=== PATIENT | male | born 1990 | race Caucasian/White ===

== ENCOUNTER 2017-02-04 20:34 | Emergency (ER) | payer SELFPAY ==
[~2017-02-04] VITALS: Ht 188 cm; Wt 80.0 kg
[2017-02-04 20:35] VITALS: BP 115/74; PULSE 111; RESP 16; TEMP 98.9; O2SAT 98
--- NOTE | 2017-02-04 21:02 | PD ---
Physical Exam Date Seen by Provider: Feb 04, 2017 Time Seen by Provider: 20:59 Narrative 26 YOWM 3 DAYS OF SORE THROAT, F/C, COUGH, CONGESTION, CP WITH DEEP BREATH AND COUGH. NO N/V VS NOTED. PT AWAITING BED PLACEMENT. Data Data Last Documented VS Vital Signs Date Time Temp Pulse Resp B/P Pulse Ox O2 Delivery O2 Flow Rate FiO2 02/04/17 20:35 98.9 111 16 115/74 98 Room Air [facility] Medical Record Reviewed: Yes Supervised Visit with SHANTELL: Yes Nick Robbins Feb 04, 2017 21:02
--- NOTE | 2017-02-04 21:36 | PD ---
HPI Chief Complaint: Cold / Flu Symptoms Time Seen by Provider: 21:20 Travel History International Travel<30 days: No Contact w/Intl Traveler<30days: No Traveled to known affect area: No History of Present Illness HPI 26-year-old male presents for evaluation of cough, congestion and sore throat. Symptoms started 3 days ago. Hurts to swallow. He reports that he has been coughing up brown sputum. He reports that his has similar but less severe symptoms. He has had no objective fevers at home. He denies any abdominal pain , nausea or vomiting, rash or recent travel. He hasn't tried using any over-the -counter medication for symptom relief. No other complaints. PFSH Past Medical History Immunizations Current: Yes Tetanus Vaccination: Unknown Influenza Vaccination: No Social History Alcohol Use: No Tobacco Use: Yes Substance Use: No Allergies-Medications (Allergen,Severity, Reaction): Coded Allergies: No Known Allergies (Unverified , 02/04/17) Reported Meds & Prescriptions Reported Meds & Active Scripts Active Amoxicillin 875 Mg Tab 875 Mg PO BID 10 Days Review of Systems Except as stated in HPI: all other systems reviewed are Neg Physical Exam Narrative GENERAL: Well-nourished male in no acute distress SKIN: Warm and dry. HEAD: Atraumatic. Normocephalic. EYES: Pupils equal and round. No scleral icterus. No injection or drainage. ENT: No nasal bleeding or discharge. Mucous membranes pink and moist. Mild oropharyngeal erythema without exudate. Uvula midline with no mass effect. NECK: Trachea midline. No JVD. No lymphadenopathy CARDIOVASCULAR: Regular rate and rhythm. No murmur appreciated. RESPIRATORY: No accessory muscle use. Clear to auscultation. Breath sounds equal bilaterally. No crackles no wheezing or rhonchi GASTROINTESTINAL: Abdomen soft, non-tender, nondistended. Hepatic and splenic margins not palpable. Data Data Last Documented VS Vital Signs Date Time Temp Pulse Resp B/P Pulse Ox O2 Delivery O2 Flow Rate FiO2 02/04/17 20:35 98.9 111 16 115/74 98 Room Air Orders Influenzae A/B Antigen (02/04/17 21:32) Group A Rapid Strep Screen (02/04/17 21:32) Amoxicillin (Trimox) (02/04/17 23:00) MDM Medical Decision Making Medical Screen Exam Complete: Yes Emergency Medical Condition: Yes Medical Record Reviewed: Yes Differential Diagnosis Pharyngitis, tonsillitis, peritonsillar abscess, infectious mononucleosis, bronchitis, pneumonia, influenza Narrative Course 26-year-old male with 3 days of sore throat, cough and congestion. He appears well. Lungs sound clear. Mild oropharynx erythema. Rapid strep screen and influenza antigen have been ordered. Rapid strep screen is positive. He will be treated with amoxicillin, first dose given tonight. Diagnosis Primary Impression: Streptococcal pharyngitis Additional Instructions: Medication as prescribed. Free at [employer]. Stay well hydrated well-nourished. Follow-up with primary care as needed. Return for any emergent medical conditions. Med/Other Pt SpecificInfo: Prescription(s) given Scripts Amoxicillin 875 Mg [id number] Mg PO BID 10 Days Ref 0 Prov:Mishel De Los Santos MD 02/04/17 Disposition: 01 DISCHARGE HOME Condition: Stable Ambrose Collazo Feb 04, 2017 21:36
[2017-02-04] MEDS ORDERED: AMOX875T PO (22:48)
[2017-02-04] MEDS: AMOXICILLIN 875 MG TAB PO ONE (23:29)
== END 2017-02-04 23:29 | disposition home or self-care (01) ==
LOC: NEPK 20:34
DX: J02.0 Streptococcal pharyngitis (principal); R05 Cough; R09.1 Pleurisy; R09.81 Nasal congestion; Z72.0 Tobacco use
CPT/HCPCS: 87804; 87880; 99283

== ENCOUNTER 2017-10-16 14:13 | Emergency (ER) | payer SELFPAY ==
[~2017-10-16 14:13] MED LIST: AMOX875T PO
[2017-10-16 14:14] VITALS: BP 113/71; PULSE 85; RESP 16; TEMP 98.5; O2SAT 99
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
[2017-10-16 15:28] LABS: AUTOMATED NEUTROPHIL # 2.8 TH/MM3 (1.8-7.7); BASOPHIL % 0.7 % (0.0-2.0); EOSINOPHIL # 0.4 TH/MM3 (0-0.4); EOSINOPHIL % 6.9 % (0.0-4.0); HEMATOCRIT 43.6 % (39.0-51.0); HEMOGLOBIN 14.4 GM/DL (13.0-17.0); LYMPH % 40.1 % (9.0-44.0); LYMPHOCYTE # 2.6 TH/MM3 (1.0-4.8); MEAN CORPUSCULAR HEMOGLOBIN 30.6 PG (27.0-34.0); MEAN PLATELET VOLUME 7.3 FL (7.0-11.0); MONO % 9.2 % (0.0-8.0); MONOCYTE # 0.6 TH/MM3 (0-0.9); NEUT % 43.1 % (16.0-70.0); PLATELET COUNT 248 TH/MM3 (150-450); RED BLOOD COUNT 4.69 MIL/MM3 (4.50-5.90); RED CELL DISTRIBUTION WIDTH 13.8 % (11.6-17.2); WHITE BLOOD COUNT 6.4 TH/MM3 (4.0-11.0)
[2017-10-16 16:01] LABS: ALKALINE PHOSPHATASE 89 U/L (45-117); ALT (GPT) 22 U/L (12-78); AST (GOT) 18 U/L (15-37); BICARBONATE 28.1 MEQ/L (21.0-32.0); BLOOD UREA NITROGEN 6 MG/DL (7-18); CHLORIDE 105 MEQ/L (98-107); CREATININE 0.59 MG/DL (0.60-1.30); GLOMERULAR FILTRATION RATE 166 ML/MIN (>89); GLUCOSE,RANDOM 83 MG/DL (74-106); SODIUM (NA) 137 MEQ/L (136-145); TOTAL BILIRUBIN ADULT 0.2 MG/DL (0.2-1.0); TOTAL PROTEIN 7.6 GM/DL (6.4-8.2)
[2017-10-16 16:04] LABS: ACETAMINOPHEN LESS THAN 2.0 MCG/ML (10.0-30.0)
--- NOTE | 2017-10-17 00:02 | PD ---
Physical Exam Date Seen by Provider: Oct 16, 2017 Time Seen by Provider: 23:58 Narrative The patient is a 27-year-old male was initially evaluated by the previous physician. Please refer to the initial history, physical, diagnostic evaluation, and treatment modality plan. Patient does have a history of drug use, last use methamphetamines one week ago. The patient recently lost his apartment, had thoughts of suicide earlier today. The patient contributes his suicidal ideations earlier today to the time a year and his drug use. The patient was signed out by the previous physician with psychiatric evaluation pending. Data Data Last Documented VS Vital Signs Date Time Temp Pulse Resp B/P (MAP) Pulse Ox O2 Delivery O2 Flow Rate FiO2 10/16/17 14:14 98.5 85 16 113/71 (85) 99 Room Air Orders Orders Complete Blood Count With Diff (10/16/17 14:30) Comprehensive Metabolic Panel (10/16/17 14:30) Psych Screen (10/16/17 14:30) Drug Screen, Random Urine (10/16/17 14:30) Alcohol (Ethanol) (10/16/17 14:30) Salicylates (Aspirin) (10/16/17 14:30) Tylenol (Acetaminophen) (10/16/17 14:30) ^ Sitter (10/16/17 15:15) Diet Regular Basic (10/16/17 Dinner) Ed Discharge Order (10/16/17 23:56) Labs Laboratory Tests Test 10/16/17 14:50 White Blood Count 6.4 TH/MM3 Red Blood Count 4.69 MIL/MM3 Hemoglobin 14.4 GM/DL Hematocrit 43.6 % Mean Corpuscular Volume 93.0 FL Mean Corpuscular Hemoglobin 30.6 PG Mean Corpuscular Hemoglobin Concent 33.0 % Red Cell Distribution Width 13.8 % Platelet Count 248 TH/MM3 Mean Platelet Volume 7.3 FL Neutrophils (%) (Auto) 43.1 % Lymphocytes (%) (Auto) 40.1 % Monocytes (%) (Auto) 9.2 % Eosinophils (%) (Auto) 6.9 % Basophils (%) (Auto) 0.7 % Neutrophils # (Auto) 2.8 TH/MM3 Lymphocytes # (Auto) 2.6 TH/MM3 Monocytes # (Auto) 0.6 TH/MM3 Eosinophils # (Auto) 0.4 TH/MM3 Basophils # (Auto) 0.0 TH/MM3 CBC Comment DIFF FINAL Differential Comment Blood Urea Nitrogen 6 MG/DL Creatinine 0.59 MG/DL Random Glucose 83 MG/DL Total Protein 7.6 GM/DL Albumin 4.0 GM/DL Calcium Level 9.0 MG/DL Alkaline Phosphatase 89 U/L Aspartate Amino Transf (AST/SGOT) 18 U/L Alanine Aminotransferase (ALT/SGPT) 22 U/L Total Bilirubin 0.2 MG/DL Sodium Level 137 MEQ/L Potassium Level 4.2 MEQ/L Chloride Level 105 MEQ/L Carbon Dioxide Level 28.1 MEQ/L Anion Gap 4 MEQ/L Estimat Glomerular Filtration Rate 166 ML/MIN Salicylates Level 3.6 MG/DL Urine Opiates Screen NEG Acetaminophen Level LESS THAN 2.0 MCG/ML Urine Barbiturates Screen NEG Urine Amphetamines Screen NEG Urine Benzodiazepines Screen NEG Urine Cocaine Screen NEG Urine Cannabinoids Screen POS Ethyl Alcohol Level LESS THAN 3 MG/DL [facility] Medical Record Reviewed: Yes Supervised Visit with SHANTELL: No Interpretation(s) Laboratory Tests Test 10/16/17 14:50 White Blood Count 6.4 TH/MM3 Red Blood Count 4.69 MIL/MM3 Hemoglobin 14.4 GM/DL Hematocrit 43.6 % Mean Corpuscular Volume 93.0 FL Mean Corpuscular Hemoglobin 30.6 PG Mean Corpuscular Hemoglobin Concent 33.0 % Red Cell Distribution Width 13.8 % Platelet Count 248 TH/MM3 Mean Platelet Volume 7.3 FL Neutrophils (%) (Auto) 43.1 % Lymphocytes (%) (Auto) 40.1 % Monocytes (%) (Auto) 9.2 % Eosinophils (%) (Auto) 6.9 % Basophils (%) (Auto) 0.7 % Neutrophils # (Auto) 2.8 TH/MM3 Lymphocytes # (Auto) 2.6 TH/MM3 Monocytes # (Auto) 0.6 TH/MM3 Eosinophils # (Auto) 0.4 TH/MM3 Basophils # (Auto) 0.0 TH/MM3 CBC Comment DIFF FINAL Differential Comment Blood Urea Nitrogen 6 MG/DL Creatinine 0.59 MG/DL Random Glucose 83 MG/DL Total Protein 7.6 GM/DL Albumin 4.0 GM/DL Calcium Level 9.0 MG/DL Alkaline Phosphatase 89 U/L Aspartate Amino Transf (AST/SGOT) 18 U/L Alanine Aminotransferase (ALT/SGPT) 22 U/L Total Bilirubin 0.2 MG/DL Sodium Level 137 MEQ/L Potassium Level 4.2 MEQ/L Chloride Level 105 MEQ/L Carbon Dioxide Level 28.1 MEQ/L Anion Gap 4 MEQ/L Estimat Glomerular Filtration Rate 166 ML/MIN Salicylates Level 3.6 MG/DL Urine Opiates Screen NEG Acetaminophen Level LESS THAN 2.0 MCG/ML Urine Barbiturates Screen NEG Urine Amphetamines Screen NEG Urine Benzodiazepines Screen NEG Urine Cocaine Screen NEG Urine Cannabinoids Screen POS Ethyl Alcohol Level LESS THAN 3 MG/DL Differential Diagnosis Differential diagnosis includes polysubstance abuse, substance induced mood disorder, stress reaction, adjustment reaction, depressive disorder NOS, suicidal ideation. Narrative Course The patient was initially evaluated by the previous physician. Please refer to the initial history, physical, diagnostic evaluation, treatment modality plan. The patient's toxin was positive for cannabinoids. Alcohol level is unremarkable. The patient was evaluated by psychiatry, cleared by psychiatry as he no longer had suicidal ideation. I evaluated the patient at 12 AM on , he states he no longer has any suicidal ideation. He denies any history of depressive disorder, previous suicide attempts, or current suicidal ideation. He denies any plan for suicide. The patient states he would like to "better himself "by going to drug rehabilitation. Therefore, psychiatric cargo surveyor will provide the patient with resources for drug rehabilitation. He is medically clear to be discharged, follow-up in an outpatient basis. However , he is advised to return for any thoughts of suicide or increasing depression. Diagnosis Primary Impression: Adjustment reaction Qualified Codes: F43.25 - Adjustment disorder with mixed disturbance of emotions and conduct Additional Impression: Substance use disorder Patient Instructions: General Instructions Additional Instruction: Return if symptoms worsen or progress. Resources per psychiatric cargo surveyor for substance abuse. Med/Other Pt SpecificInfo: No Change to Meds Scripts No Active Prescriptions or Reported Meds Disposition: DISCHARGE HOME Condition: Stable Cisco Arauz MD Oct 17, 2017 00:02
[2017-10-17 00:35] VITALS: BP 118/62
== END 2017-10-17 00:35 | disposition home or self-care (01) ==
LOC: NEPD 14:13
DX: F43.25 Adjustment disorder with mixed disturbance of emotions and conduct (principal); Z72.0 Tobacco use
CPT/HCPCS: 80053; 80307; 85025; 99284

== ENCOUNTER 2017-11-14 13:56 | Emergency (ER) | payer SELFPAY ==
[2017-11-14 14:35] VITALS: BP 104/56; PULSE 90; RESP 18; TEMP 97.6; O2SAT 98
[2017-11-14 16:37] LABS: AUTOMATED NEUTROPHIL # 7.6 TH/MM3 (1.8-7.7); BASOPHIL % 0.4 % (0.0-2.0); EOSINOPHIL # 0.1 TH/MM3 (0-0.4); EOSINOPHIL % 0.9 % (0.0-4.0); HEMATOCRIT 39.7 % (39.0-51.0); HEMOGLOBIN 13.4 GM/DL (13.0-17.0); LYMPH % 11.6 % (9.0-44.0); LYMPHOCYTE # 1.1 TH/MM3 (1.0-4.8); MEAN CELL VOLUME 92.9 FL (80.0-100.0); MEAN CORPUSCULAR HEMOGLOBIN 31.3 PG (27.0-34.0); MEAN CORPUSCULAR HGB CONC 33.7 % (32.0-36.0); MONO % 8.2 % (0.0-8.0); MONOCYTE # 0.8 TH/MM3 (0-0.9); NEUT % 78.9 % (16.0-70.0); PLATELET COUNT 231 TH/MM3 (150-450); RED BLOOD COUNT 4.28 MIL/MM3 (4.50-5.90); RED CELL DISTRIBUTION WIDTH 12.8 % (11.6-17.2); WHITE BLOOD COUNT 9.6 TH/MM3 (4.0-11.0)
[2017-11-14 16:49] LABS: ALBUMIN 3.5 GM/DL (3.4-5.0); ALT (GPT) 22 U/L (12-78); AST (GOT) 14 U/L (15-37); BICARBONATE 27.7 MEQ/L (21.0-32.0); BLOOD UREA NITROGEN 10 MG/DL (7-18); CALCIUM 8.6 MG/DL (8.5-10.1); CHLORIDE 106 MEQ/L (98-107); CREATININE 0.83 MG/DL (0.60-1.30); GLOMERULAR FILTRATION RATE 112 ML/MIN (>89); GLUCOSE,RANDOM 80 MG/DL (74-106); SODIUM (NA) 140 MEQ/L (136-145)
[2017-11-14 16:52] LABS: ALKALINE PHOSPHATASE 92 U/L (45-117); TOTAL BILIRUBIN ADULT 0.4 MG/DL (0.2-1.0); TOTAL PROTEIN 6.9 GM/DL (6.4-8.2)
--- NOTE | 2017-11-14 18:00 | PD ---
HPI Chief Complaint: Syncope/Near-Syncope Time Seen by Provider: 17:49 Travel History International Travel<30 days: No Contact w/Intl Traveler<30days: No Traveled to known affect area: No History of Present Illness HPI 27-year-old male presents to the emergency room via ambulance for evaluation of syncope. Patient states he was standing in line at a food senior care when he became dizzy and passed out. States he has not eaten in 2-3 days. Patient passed out prior to being given food. He is currently homeless because he just lost his apartment. Patient admits to using IV heroin and abusing methadone. He denies any pain at this time. Denies any chronic medical conditions or daily medications. No suicidal or homicidal ideation. PFSH Past Medical History Medical History: Denies Significant Hx Anxiety: Yes Diminished Hearing: No Immunizations Current: Yes Past Surgical History Surgical History: No Previous Surgery Social History Alcohol Use: No Tobacco Use: Yes Substance Use: Yes (MARIJUANA 11/14, METH LAST USED 8 MONTHS AGO) Allergies-Medications (Allergen,Severity, Reaction): Coded Allergies: No Known Allergies (Verified Adverse Reaction, Unknown, 10/16/17) Reported Meds & Prescriptions Reported Meds & Active Scripts Active No Active Prescriptions or Reported Medications Review of Systems Except as stated in HPI: all other systems reviewed are Neg Physical Exam Narrative GENERAL: Well-nourished, well-developed male in no acute distress. Afebrile. Ambulatory. SKIN: Focused skin assessment warm/dry. HEAD: Normocephalic. EYES: No scleral icterus. No injection or drainage. NECK: Supple, trachea midline. No JVD or lymphadenopathy. CARDIOVASCULAR: Regular rate and rhythm without murmurs, gallops, or rubs. RESPIRATORY: Breath sounds equal bilaterally. No accessory muscle use. NEUROLOGICAL: Awake and alert. Cranial nerves II through XII intact. Motor and sensory grossly within normal limits. Five out of 5 muscle strength in all muscle groups. Normal speech. Data Data Last Documented VS Vital Signs Date Time Temp Pulse Resp B/P (MAP) Pulse Ox O2 Delivery O2 Flow Rate FiO2 11/14/17 14:35 97.6 90 18 104/56 (72) 98 Orders Orders Electrocardiogram (11/14/17 15:12) Complete Blood Count With Diff (11/14/17 15:12) Comprehensive Metabolic Panel (11/14/17 15:12) Iv Access Insert/Monitor (11/14/17 15:12) Labs Laboratory Tests Test 11/14/17 15:30 White Blood Count 9.6 TH/MM3 Red Blood Count 4.28 MIL/MM3 Hemoglobin 13.4 GM/DL Hematocrit 39.7 % Mean Corpuscular Volume 92.9 FL Mean Corpuscular Hemoglobin 31.3 PG Mean Corpuscular Hemoglobin Concent 33.7 % Red Cell Distribution Width 12.8 % Platelet Count 231 TH/MM3 Mean Platelet Volume 8.0 FL Neutrophils (%) (Auto) 78.9 % Lymphocytes (%) (Auto) 11.6 % Monocytes (%) (Auto) 8.2 % Eosinophils (%) (Auto) 0.9 % Basophils (%) (Auto) 0.4 % Neutrophils # (Auto) 7.6 TH/MM3 Lymphocytes # (Auto) 1.1 TH/MM3 Monocytes # (Auto) 0.8 TH/MM3 Eosinophils # (Auto) 0.1 TH/MM3 Basophils # (Auto) 0.0 TH/MM3 CBC Comment DIFF FINAL Differential Comment Blood Urea Nitrogen 10 MG/DL Creatinine 0.83 MG/DL Random Glucose 80 MG/DL Total Protein 6.9 GM/DL Albumin 3.5 GM/DL Calcium Level 8.6 MG/DL Alkaline Phosphatase 92 U/L Aspartate Amino Transf (AST/SGOT) 14 U/L Alanine Aminotransferase (ALT/SGPT) 22 U/L Total Bilirubin 0.4 MG/DL Sodium Level 140 MEQ/L Potassium Level 3.3 MEQ/L Chloride Level 106 MEQ/L Carbon Dioxide Level 27.7 MEQ/L Anion Gap 6 MEQ/L Estimat Glomerular Filtration Rate 112 ML/MIN [facility] Medical Decision Making Medical Screen Exam Complete: Yes Emergency Medical Condition: Yes Medical Record Reviewed: Yes Differential Diagnosis Syncope, hypoglycemia, hypotension, dehydration Narrative Course 27-year-old otherwise healthy male presents to the emergency room via ambulance for evaluation of syncopal episode that occurred earlier today. Patient was not waiting in line at a food senior care when he passed out. He has not eaten in 2 -3 days. He denies any other complaints at this time. Physical exam as unremarkable. No focal neurological deficits. EKG shows sinus rhythm with arrhythmia with a rate of 61 bpm. There has J-point elevation but no STEMI. Signed off by my attending physician. CBC in BMP are unremarkable. I suspect patient's syncopal episode secondary to not eating in 2-3 days. He has given some nourishment in the ED in discharge with information for the cold senior care. Told to follow-up with a primary care physician or return for worsening symptoms. He understands again agrees to plan. Diagnosis Primary Impression: Syncope Qualified Codes: R55 - Syncope and collapse Referrals: Primary Care Physician Additional Instructions: Rest and drink plenty of fluids. Cold senior care information provided. Follow-up with a primary care physician. Return to the emergency room for worsening symptoms. Scripts No Active Prescriptions or Reported Meds Disposition: 01 DISCHARGE HOME Condition: Stable Aisha Ramírez Nov 14, 2017 18:00
--- NOTE | 2017-11-15 22:33 | EKG ---
Date Performed: 11/14/2017 Time Performed: 16:32:39 PTAGE: 27 years EKG: Sinus rhythm WITH SINUS ARRHYTHMIA ST ELEVATION, PROBABLY EARLY REPOLARIZATION BORDERLINE ECG NO PREVIOUS TRACING DOCTOR: Fazal Chen Interpretating Date/Time 11/15/2017 22:31:12
== END 2017-11-14 18:34 | disposition home or self-care (01) ==
LOC: NEDAMB 13:56
DX: R55 Syncope and collapse (principal); F41.9 Anxiety disorder, unspecified; R42 Dizziness and giddiness; F11.10 Opioid abuse, uncomplicated; I49.8 Other specified cardiac arrhythmias; Z72.0 Tobacco use; Z59.0 Homelessness
CPT/HCPCS: 80053; 85025; 93005; 99284